=== PATIENT | male | born 1965 | race Two or more races ===

== ENCOUNTER 2019-11-01 16:11 | Emergency (ER) | payer OTHER ==
[~2019-11-01] VITALS: Ht 175.3 cm; Wt 103.9 kg
[2019-11-01 16:53] LABS: Urine WBC None Seen /hpf (0 - 3)
[2019-11-01 17:13] LABS: Basophils # (auto) 0 10 ^3/uL (0-0.2); Eosinophils # (auto) 0 10 ^3/uL (0-0.8); Lymphocytes # (auto) 2.2 10 ^3/uL (0.4-5.4)
[2019-11-01 17:14] LABS: Basophils % (auto) 0.3 % (0.0-2.0); Eosinophils % (auto) 0.1 % (0.0-7.0); Hematocrit 53.7 % (41.0-53.0); Lymphocytes % (auto) 13.5 % (10.0-50.0); Mean Corpuscular Hemoglobin 28.3 pg (28.0-32.0); Mean Corpuscular Hgb Conc. 33.5 g/dL (32.0-36.0); Mean Corpuscular Volume 84.4 fL (80.0-100.0); Monocytes # (auto) 1.4 10 ^3/uL (0-1.3); Monocytes % (auto) 8.3 % (0.0-12.0); Neutrophils # (auto) 12.7 10 ^3/uL (1.6-8.6); Neutrophils % (auto) 77.8 % (37.0-80.0); Nucleated Red Blood Cells % 0.6 %; Platelet Count (auto) 284 10^3/uL (140-450); Red Blood Cells 6.36 10^6/uL (4.5-5.90); Red Cell Distribution Width 13.3 % (11.8-14.3); White Blood Cell 16.4 10^3/uL (4.4-10.8)
[2019-11-01 17:20] LABS: Urine Bacteria NONE SEEN /hpf (None Seen); Urine Blood Negative /uL (Negative); Urine Specific Gravity 1.021 (1.001-1.035)
[2019-11-01 17:31] LABS: BUN/Creatinine Ratio 11.8; Calcium 8.8 mg/dL (8.5-10.1); Potassium 3.7 mmol/L (3.5-5.1)
[2019-11-01 21:00] VITALS: BP 158/97
[2019-11-01] MEDS ORDERED: MAGNESIUM CITRATE SOLUTION 300 ML BTL PO ONE (21:00)
== END 2019-11-01 21:40 | disposition home or self-care (01) ==
LOC: ER 16:11
DX: K80.20 Calculus of gallbladder without cholecystitis without obstruction (principal); K59.00 Constipation, unspecified
CPT/HCPCS: 36415; 74176; 76705; 80048; 81001; 82150; 83690; 85025; 93005

== ENCOUNTER 2019-11-02 13:16 | Inpatient (IN) | payer OTHER ==
[~2019-11-02] VITALS: Ht 175.3 cm; Wt 105.0 kg
[2019-11-02] MEDS ORDERED: SODIUM CHLORIDE 0.9% 1,000 ML IV ONE (13:51)
[2019-11-02] MEDS ORDERED: SODIUM CHLORIDE 0.9% 1,000 ML IVB ONE (13:51)
[2019-11-02] MEDS ORDERED: KETOROLAC TROMETH 15 mg/ml 1ML VL IV ONE (14:00)
[2019-11-02] MEDS ORDERED: METOCLOPRAMIDE HCL 5MG/ml INJ 2ml VIAL IV ONE (14:00)
[2019-11-02] MEDS ORDERED: KETOROLAC TROMETH 30 MG/ML 1ML VIAL ONE (14:08)
[2019-11-02 14:12] LABS: Basophils # (auto) 0 10 ^3/uL (0-0.2); Basophils % (auto) 0.2 % (0.0-2.0); Eosinophils # (auto) 0 10 ^3/uL (0-0.8); Eosinophils % (auto) 0.1 % (0.0-7.0); Lymphocytes # (auto) 1.6 10 ^3/uL (0.4-5.4); Neutrophils # (auto) 12.2 10 ^3/uL (1.6-8.6)
[2019-11-02 14:13] LABS: Hematocrit 51.7 % (41.0-53.0); Hemoglobin 17.2 g/dL (13.5-17.5); Lymphocytes % (auto) 10.8 % (10.0-50.0); Mean Corpuscular Hemoglobin 28.5 pg (28.0-32.0); Mean Corpuscular Hgb Conc. 33.3 g/dL (32.0-36.0); Mean Corpuscular Volume 85.8 fL (80.0-100.0); Monocytes # (auto) 1.1 10 ^3/uL (0-1.3); Monocytes % (auto) 7.2 % (0.0-12.0); Neutrophils % (auto) 81.7 % (37.0-80.0); Nucleated Red Blood Cells % 0.1 %; Platelet Count (auto) 237 10^3/uL (140-450); Red Blood Cells 6.03 10^6/uL (4.5-5.90); Red Cell Distribution Width 13.6 % (11.8-14.3)
[2019-11-02 14:29] LABS: Albumin 3.7 g/dL (3.4-5.0); Calcium 8.7 mg/dL (8.5-10.1); Potassium 3.6 mmol/L (3.5-5.1)
[2019-11-02 14:40] LABS: BUN/Creatinine Ratio 14.8; Bilirubin, Total 1.6 mg/dL (0.2-1.0); Total Protein 8.5 g/dL (6.4-8.2)
[2019-11-02] MEDS: SODIUM CHLORIDE 0.9% 1,000 ML IV SCH (15:30)
[2019-11-02] MEDS ORDERED: ALUM & MAG HYDROX-SIMETH LIQ(MAALOX) 30 ML PO ONE (15:30)
[2019-11-02] MEDS ORDERED: MORPHINE SULF INJ 2 MG/ML SYRINGE 1ML IV PRN (15:30)
[2019-11-02] MEDS ORDERED: metroNIDAZOLE 500MG/100ML 100 ML IV ONE (15:30)
[2019-11-02] MEDS ORDERED: LORazepam 0.5 MG TAB PO PRN (15:30)
[2019-11-02] MEDS ORDERED: DEXTROSE (50%) 50ML SYRG IV PRN (15:30)
[2019-11-02] MEDS ORDERED: cefTRIAXone 1GM/50ML D5W 50 ML IV ONE (15:30)
[2019-11-02] MEDS ORDERED: NITROGLYCERIN 0.4 MG SL TAB SL PRN (15:30)
[2019-11-02] MEDS ORDERED: ONDANSETRON HCL 4 MG/2 ML VIAL IV PRN (15:30)
[2019-11-02] MEDS: HYDROcodone-ACET 5/325MG TAB PO PRN ×2 (16:36→20:41)
[2019-11-02] MEDS: ACCU-CHEK COMFORT CURVE STRIP VI SCH ×2 (16:54→22:46)
[2019-11-02] MEDS: InsuLIN REG 1unit/0.01ml Soln (100units/ml) SC SCH ×2 (16:55→22:00)
[2019-11-02 17:00] VITALS: BP 151/78
--- NOTE | 2019-11-02 17:00 | NUR ---
MS admit from [facility] admitted to tele/MS after SBAR received. Patient oriented to Naina Brooks, RN primary RN, unit, room, bed, and unit policies regarding patient care and visiting hours. Patient weighed by bedscale and encouraged to call if they need something. All questions and concerns addressed, patient verbalized understanding.
[2019-11-02 17:27] VITALS: BP 151/78
--- NOTE | 2019-11-02 18:10 | NUR ---
MRSA swab sent to lab
--- NOTE | 2019-11-02 19:21 | NUR ---
Care endorsed to NOC RN.
--- NOTE | 2019-11-02 19:40 | NUR ---
Opening Shift Note Received report and assumed care of patient. Patient is awake and alert. No signs or symptoms of distress noted. Instructed patient on plan of care and to call for assistance as needed. Will continue to monitor.
--- NOTE | 2019-11-02 20:41 | NUR ---
Pain Medication Administration Patient complaining of abdominal pain 5/10. Administered pain medication per MD order. Will reassess pain level and will continue to monitor.
--- NOTE | 2019-11-02 21:44 | NUR ---
Pain Level Reassessment and Fever Patient stated pain level 4/10 for reassessment. Educated patient on ordered pain medication. Repositioned patient for comfort. Patient's temperature noted to be 102.5 F. Started patient on cooling measures. Paged Hospitalist for antipyretic medication. Will continue to monitor.
[2019-11-02] MEDS ORDERED: TRIAMCINOLONE ACET 0.1% TOPICAL CREAM 15GM TOP ONE (21:45)
[2019-11-02 22:00] VITALS: BP 147/71
[2019-11-02] MEDS: metroNIDAZOLE 500MG/100ML 100 ML IV SCH (22:40)
--- NOTE | 2019-11-02 22:58 | NUR ---
Temperature recheck and new order Patient temperature recheck 101.9 F. Received call back from hospitalist. New order for Tylenol 650mg q6hr PRN for mild pain or fever. Order read back and verified. Will carry out and continue to monitor.
[2019-11-02] MEDS: ACETAMINOPHEN 325 MG TAB PO PRN (23:19)
--- NOTE | 2019-11-03 00:19 | NUR ---
Temperature Recheck Patient's temperature 101.3 F. Reinforced cooling measures. Will continue to monitor.
--- NOTE | 2019-11-03 01:20 | NUR ---
Temperature Recheck Patient's temperature 100.0 F. Cooling measures still in place. Will continue to monitor.
[2019-11-03] MEDS: HYDROcodone-ACET 5/325MG TAB PO PRN (02:30)
--- NOTE | 2019-11-03 02:30 | NUR ---
Temperature recheck and pain medication administration Patient temperature 99.3 F. Patient complaining of abdominal pain 11/19. Administered pain medication per MD order. Will reassess pain level and will continue to monitor.
--- NOTE | 2019-11-03 03:30 | NUR ---
Pain Level Reassessment Patient asleep for pain level reassessment. No signs or symptoms of distress noted. Will continue to monitor.
[2019-11-03 05:00] VITALS: BP 125/83
[2019-11-03] MEDS: ACETAMINOPHEN 325 MG TAB PO PRN ×2 (05:30→15:24)
[2019-11-03 05:49] LABS: Basophils # (auto) 0 10 ^3/uL (0-0.2); Basophils % (auto) 0.1 % (0.0-2.0); Eosinophils # (auto) 0 10 ^3/uL (0-0.8); Hematocrit 47.9 % (41.0-53.0); Hemoglobin 16.3 g/dL (13.5-17.5); Lymphocytes # (auto) 0.9 10 ^3/uL (0.4-5.4); Lymphocytes % (auto) 6.4 % (10.0-50.0); Mean Corpuscular Hgb Conc. 33.9 g/dL (32.0-36.0); Mean Corpuscular Volume 85.5 fL (80.0-100.0); Monocytes % (auto) 6.9 % (0.0-12.0); Neutrophils # (auto) 12.1 10 ^3/uL (1.6-8.6); Neutrophils % (auto) 86.6 % (37.0-80.0); Nucleated Red Blood Cells % 0.1 %; Platelet Count (auto) 219 10^3/uL (140-450); Red Blood Cells 5.61 10^6/uL (4.5-5.90); Red Cell Distribution Width 13.4 % (11.8-14.3); White Blood Cell 13.9 10^3/uL (4.4-10.8)
[2019-11-03] MEDS: metroNIDAZOLE 500MG/100ML 100 ML IV SCH ×3 (05:58→22:14)
[2019-11-03 06:02] LABS: INR 1.12 (0.9-1.15)
[2019-11-03 06:13] LABS: Potassium 3.9 mmol/L (3.5-5.1)
[2019-11-03 06:23] LABS: Albumin 3.2 g/dL (3.4-5.0); BUN/Creatinine Ratio 13.6; Bilirubin, Total 1.3 mg/dL (0.2-1.0); Magnesium 2.5 mg/dL (1.6-2.6); Phosphorus 2.6 mg/dL (2.5-4.90); Total Protein 7.6 g/dL (6.4-8.2)
[2019-11-03] MEDS: cefTRIAXone 1GM/50ML D5W 50 ML IV SCH ×2 (07:00→09:17)
[2019-11-03] MEDS: InsuLIN REG 1unit/0.01ml Soln (100units/ml) SC SCH ×3 (07:00→17:00)
[2019-11-03] MEDS: ACCU-CHEK COMFORT CURVE STRIP VI SCH ×4 (07:17→17:00)
[2019-11-03] MEDS: SODIUM CHLORIDE 0.9% 1,000 ML IV SCH ×2 (07:17→16:52)
[2019-11-03 08:32] VITALS: BP 138/75
[2019-11-03] MEDS ORDERED: cefTRIAXone 1GM/50ML D5W 50 ML IV SCH (09:00)
--- NOTE | 2019-11-03 09:00 | NUR ---
TEMP 100.3
--- NOTE | 2019-11-03 09:15 | NUR ---
COOLING MEASURES INITIATED
[2019-11-03] MEDS: TRIAMCINOLONE ACET 0.1% TOPICAL CREAM 15GM TOP SCH ×2 (09:18→22:14)
[2019-11-03] MEDS: ENOXAPARIN SOD 40 MG/0.4 ML SYRINGE SC SCH ×2 (09:18→10:00)
[2019-11-03] MEDS: DOCUSATE SOD 100 MG CAP PO SCH ×2 (09:18→10:00)
--- NOTE | 2019-11-03 09:55 | NUR ---
TEMP REASSESSMENT NEW TEMPERATURE 99.2
--- NOTE | 2019-11-03 11:28 | NUR ---
PT OFF UNIT FOR PROCEDURE
[2019-11-03] MEDS ORDERED: ceFAZolin 1GM/50ML 50 ML IV ONE (11:35)
[2019-11-03] MEDS ORDERED: MIDAZOLAM HCL 1MG/1ML-2 ML VIAL ONE (11:57)
[2019-11-03] MEDS ORDERED: SUCCINYLCHOLINE 20mg/ml 100mg/5ml SYRINGE IV ONE (11:57)
[2019-11-03] MEDS ORDERED: LIDOCAINE 1% (LOCAL ANESTH.) PF 5ml SDV ONE (11:58)
[2019-11-03] MEDS ORDERED: ETOMIDATE (2MG/ML) 20ML VIAL IV ONE (11:58)
[2019-11-03] MEDS ORDERED: METOCLOPRAMIDE HCL 5MG/ml INJ 2ml VIAL ONE (11:59)
[2019-11-03] MEDS ORDERED: fentaNYL CITRATE 100 MCG/2 ML VL ONE (12:08)
[2019-11-03] MEDS ORDERED: ROCURONIUM 10MG/ML 10ML VIAL IV ONE (12:10)
[2019-11-03] MEDS ORDERED: hydrALAZINE HCL 20 MG/ML VL IV PRN ×2 (12:15→18:15)
[2019-11-03] MEDS ORDERED: HYDROmorphone HCL 2 MG/ML VL IV PRN ×2 (12:15)
[2019-11-03] MEDS ORDERED: ONDANSETRON HCL 4 MG/2 ML VIAL IV PRN (12:15)
[2019-11-03] MEDS ORDERED: NALOXONE HCL 0.4 MG/ML VIAL IV PRN (12:15)
[2019-11-03] MEDS ORDERED: ESMOLOL HCL 10 ML IV ONE (12:32)
[2019-11-03] MEDS ORDERED: MEPERIDINE HCL (25 MG/ML) 1ML VIAL ONE (12:43)
[2019-11-03] MEDS ORDERED: GLYCOPYRROLATE 0.2 MG/ML 1ML VIAL ONE (12:57)
[2019-11-03] MEDS ORDERED: NEOSTIGMINE 1 MG/ML INJ (10mg/10ML VIAL) ONE (12:57)
--- NOTE | 2019-11-03 14:26 | NUR ---
PT ARRIVAL BACK TO UNIT S/P OPEN CHOLECYSTECTOMY PT HAS NO COMPLAINTS OF PAIN AT THIS TIME. ABDOMEN IS ROUND AND SOFT. PT ON 3L NC. NO S/S OF DISTRESS NOTED AT THIS TIME. WILL CONTINUE TO MONITOR
[2019-11-03 16:12] LABS: Urine Bacteria FEW /hpf (None Seen); Urine Blood TRACE /uL (Negative); Urine Mucus FEW (None Seen); Urine WBC 2 /hpf (0 - 3)
[2019-11-03 16:44] VITALS: BP 160/76
--- NOTE | 2019-11-03 17:24 | NUR ---
PT REFUSING ACCUCHECK AT THIS TIME PT STATES "I HAVE BEEN NORMAL EVERY TIME YOU GUYS CHECK ME AND I WAS NEVER DIABETIC BEFORE THIS SO I DO NOT WANT TO TAKE IT"
[2019-11-03 18:08] VITALS: BP 145/80
--- NOTE | 2019-11-03 19:29 | NUR ---
Opening Shift Note Received report and assumed care of patient. Patient is currently asleep but awakens to voice. Patient is alert and oriented. No signs or symptoms of distress noted. Instructed patient on plan of care and to call for assistance as needed. Will continue to monitor.
[2019-11-03 21:47] VITALS: BP 104/49
[2019-11-03 23:50] VITALS: BP 127/69
[2019-11-04] MEDS: HYDROcodone-ACET 5/325MG TAB PO PRN ×4 (01:27→21:37)
--- NOTE | 2019-11-04 01:27 | NUR ---
Pain Medication Administration Patient complaining of abdominal incision pain 5/10. Administered pain medication per MD order. Will reassess pain level and will continue to monitor.
--- NOTE | 2019-11-04 02:27 | NUR ---
Pain Level Reassessment Patient asleep for pain level reassessment. No signs or symptoms of distress noted. Will continue to monitor.
[2019-11-04 05:00] VITALS: BP 103/71
[2019-11-04] MEDS: SODIUM CHLORIDE 0.9% 1,000 ML IV SCH ×2 (05:15→12:44)
[2019-11-04] MEDS: metroNIDAZOLE 500MG/100ML 100 ML IV SCH ×3 (05:39→21:36)
--- NOTE | 2019-11-04 07:00 | NUR ---
MELISSA Drain Amount Drained 15ml of sanguineous fluid.
--- NOTE | 2019-11-04 07:20 | NUR ---
Opening shift note Assumed care of patient. A&Ox4, respirations even and non-labored with no s/s of distress. Discussed POC with patient who verbalized understanding. Patient stated he had 6/10 generalized abdominal pain. MELISSA patent, draining 10 mL of serosanguineous fluid, with dressings CDI. Abdominal binder in place with patient tolerating well without complaint. IVs patent and intact with NS at 75. Urinal emptied with 100 ml of tea colored urine. Bed lowered/locked with 2 side rails up. Call light within reach. Will continue to monitor.
--- NOTE | 2019-11-04 07:38 | NUR ---
Pain Patient c/o 6/10 abdominal pain. Administered [place] per EMAR. Will continue to monitor.
[2019-11-04 07:52] LABS: Basophils # (auto) 0 10 ^3/uL (0-0.2); Basophils % (auto) 0.2 % (0.0-2.0); Eosinophils # (auto) 0 10 ^3/uL (0-0.8); Hematocrit 41.7 % (41.0-53.0); Hemoglobin 13.9 g/dL (13.5-17.5); Lymphocytes # (auto) 1.3 10 ^3/uL (0.4-5.4); Lymphocytes % (auto) 12.5 % (10.0-50.0); Mean Corpuscular Hemoglobin 28.9 pg (28.0-32.0); Mean Corpuscular Hgb Conc. 33.3 g/dL (32.0-36.0); Mean Corpuscular Volume 86.6 fL (80.0-100.0); Monocytes # (auto) 1.5 10 ^3/uL (0-1.3); Monocytes % (auto) 14.1 % (0.0-12.0); Neutrophils # (auto) 7.8 10 ^3/uL (1.6-8.6); Neutrophils % (auto) 73.2 % (37.0-80.0); Nucleated Red Blood Cells % 0.1 %; Platelet Count (auto) 186 10^3/uL (140-450); Red Blood Cells 4.82 10^6/uL (4.5-5.90); Red Cell Distribution Width 13.6 % (11.8-14.3); White Blood Cell 10.6 10^3/uL (4.4-10.8)
[2019-11-04 08:03] LABS: Albumin 2.6 g/dL (3.4-5.0); Calcium 7.4 mg/dL (8.5-10.1); Potassium 3.9 mmol/L (3.5-5.1)
[2019-11-04 08:06] LABS: Bilirubin, Total 1.1 mg/dL (0.2-1.0); Total Protein 6.5 g/dL (6.4-8.2)
[2019-11-04] MEDS: ENOXAPARIN SOD 40 MG/0.4 ML SYRINGE SC SCH (08:24)
[2019-11-04] MEDS: cefTRIAXone 1GM/50ML D5W 50 ML IV SCH (08:25)
[2019-11-04] MEDS: DOCUSATE SOD 100 MG CAP PO SCH (08:25)
--- NOTE | 2019-11-04 08:44 | NUR ---
Pain reassessed Patient stated that his abdominal pain was slightly less now and rated 5/10 pain which was tolerable. Will continue to monitor.
[2019-11-04] MEDS: TRIAMCINOLONE ACET 0.1% TOPICAL CREAM 15GM TOP SCH ×2 (08:48→21:37)
[2019-11-04 08:54] VITALS: BP 149/64
--- NOTE | 2019-11-04 09:00 | NUR ---
Patient skin cream applied Applied psoriasis cream to patient's bilateral arms, hands, bilateral knees and thighs. Will continue to monitor.
--- NOTE | 2019-11-04 12:18 | NUR ---
Patient assisted to restroom
--- NOTE | 2019-11-04 12:46 | NUR ---
Pain Pt reports pain to abdominal incision site 12/20, pt requested pain medication, will medicate pt as order.
[2019-11-04 13:30] VITALS: BP 133/80
--- NOTE | 2019-11-04 13:41 | NUR ---
Patient reports pain level 0/10 at this time, will continue to monitor pt.
[2019-11-04 16:39] VITALS: BP 135/72
--- NOTE | 2019-11-04 19:30 | NUR ---
Opening Shift Note Assumed care of patient, awake and alert. No S/S of distress/SOB or pain. Instructed on POC and to call for assist PRN, will continue to monitor for changes Q1hr and PRN. Safety precautions maintained bed is in lowest position and bed rails 2x. Call light and bedside table are within reach.
--- NOTE | 2019-11-04 21:25 | NUR ---
PAIN Pain level 6. Will medicate per MD orders.
[2019-11-04 21:50] VITALS: BP 144/87
--- NOTE | 2019-11-04 22:40 | NUR ---
Pain reassessment Pain level 3. Patient resting comfortably in bed. Will continue to monitor Q1 and PRN.
[2019-11-05] MEDS: SODIUM CHLORIDE 0.9% 1,000 ML IV SCH (03:57)
[2019-11-05 05:00] VITALS: BP 118/67
[2019-11-05] MEDS: metroNIDAZOLE 500MG/100ML 100 ML IV SCH ×3 (05:39→21:56)
[2019-11-05] MEDS: HYDROcodone-ACET 5/325MG TAB PO PRN ×2 (05:39→17:19)
[2019-11-05 07:20] LABS: Basophils # (auto) 0 10 ^3/uL (0-0.2); Basophils % (auto) 0.1 % (0.0-2.0); Eosinophils # (auto) 0 10 ^3/uL (0-0.8); Eosinophils % (auto) 0.5 % (0.0-7.0); Hematocrit 35.5 % (41.0-53.0); Hemoglobin 11.9 g/dL (13.5-17.5); Lymphocytes # (auto) 1.3 10 ^3/uL (0.4-5.4); Lymphocytes % (auto) 13.8 % (10.0-50.0); Mean Corpuscular Hemoglobin 28.9 pg (28.0-32.0); Mean Corpuscular Hgb Conc. 33.6 g/dL (32.0-36.0); Mean Corpuscular Volume 85.9 fL (80.0-100.0); Neutrophils # (auto) 6.9 10 ^3/uL (1.6-8.6); Neutrophils % (auto) 74.6 % (37.0-80.0); Nucleated Red Blood Cells % 0.1 %; Platelet Count (auto) 184 10^3/uL (140-450); Red Blood Cells 4.13 10^6/uL (4.5-5.90); Red Cell Distribution Width 13.6 % (11.8-14.3); White Blood Cell 9.3 10^3/uL (4.4-10.8)
[2019-11-05 07:34] LABS: Albumin 2.3 g/dL (3.4-5.0); BUN/Creatinine Ratio 19.6; Calcium 7.3 mg/dL (8.5-10.1); Potassium 4.1 mmol/L (3.5-5.1)
[2019-11-05 07:56] LABS: Bilirubin, Total 0.7 mg/dL (0.2-1.0)
--- NOTE | 2019-11-05 08:00 | NUR ---
Received pt resting in bed, call light within reach, pt denies any pain or discomfort at this time, abdominal binder on, pt reports passing gas already and tolerating his clear liquid diet. Will continue to monitor pt.
--- NOTE | 2019-11-05 09:00 | NUR ---
Pt educated to increase ambulation and reeducated on the use of the incentive spirometer. Pt stated that he has been using the incentive spirometer and that he has been walking to the restroom.
[2019-11-05 09:34] VITALS: BP 111/64
--- NOTE | 2019-11-05 10:10 | NUR ---
Dressing change Removed old dressing from rt abdomen incision site and from serge drain, cleaned area with normal saline, jessica on incision intact, covered incision site and serge drain incision site with sterile gauzed and secured with tape, applied abdominal binder on,
[2019-11-05] MEDS: ENOXAPARIN SOD 40 MG/0.4 ML SYRINGE SC SCH (10:24)
[2019-11-05] MEDS: DOCUSATE SOD 100 MG CAP PO SCH (10:24)
[2019-11-05] MEDS: cefTRIAXone 1GM/50ML D5W 50 ML IV SCH (10:24)
[2019-11-05] MEDS: TRIAMCINOLONE ACET 0.1% TOPICAL CREAM 15GM TOP SCH ×2 (10:25→21:56)
[2019-11-05 13:00] VITALS: BP 130/76
--- NOTE | 2019-11-05 15:30 | NUR ---
Dr. Davis at bed side to see pt, doctor discussed the plan of care with pt, doctor encourage pt to get out of bed and ambulate or sit on chair, pt told doctor that he has been walking to the restroom, doctor also encourage and educated pt on the use of incentive spirometer, obtained returned demonstration, pt verbalized understanding.
[2019-11-05 17:03] VITALS: BP 134/75
--- NOTE | 2019-11-05 17:19 | NUR ---
Pain Pt reports pain to abdominal incision site and headache /, pt requested pain medication, will medicate pt as order.
--- NOTE | 2019-11-05 19:07 | NUR ---
OPENING SHIFT NOTE: ASSUMED CARE OF PATIENT. PATIENT IS AWAKE, ALERT AND ORIENTED X4. NO S/S OF SOB OR DISTRESS AND PATIENT DENIES PAIN. BED IS LOW, LOCKED, TWO SIDE RAILS RAISED, AND CALL JOINER WITHIN REACH. INSTRUCTED PATIENT ON POC, EDUCATED ON USE OF INCENTIVE SPIROMETER, AND ENCOURAGED TO USE CALL LIGHT FOR ASSISTANCE, PATIENT VERBALIZED UNDERSTANDING. WILL CONTINUE TO MONITOR FOR CHANGES Q1 HR AND PRN.
[2019-11-05 20:00] VITALS: BP 128/68
[2019-11-05 22:21] VITALS: BP 128/68
--- NOTE | 2019-11-05 22:33 | NUR ---
NEW IV: 22 GAUGE IV TO LEFT FOREARM LEAKING. DISCONTINUED IV, CATHETER TIP INTACT AND PRESSURE DRESSING APPLIED. NEW 22 GAUGE IV TO LEFT FOREARM INSERTED. PATIENT TOLERATED WELL.
[2019-11-06 05:05] VITALS: BP 130/73
[2019-11-06] MEDS: metroNIDAZOLE 500MG/100ML 100 ML IV SCH ×3 (06:13→21:44)
[2019-11-06 07:05] LABS: Basophils # (auto) 0 10 ^3/uL (0-0.2); Basophils % (auto) 0.3 % (0.0-2.0); Eosinophils # (auto) 0.1 10 ^3/uL (0-0.8); Eosinophils % (auto) 1.1 % (0.0-7.0); Hematocrit 35.6 % (41.0-53.0); Hemoglobin 11.8 g/dL (13.5-17.5); Lymphocytes # (auto) 1.4 10 ^3/uL (0.4-5.4); Lymphocytes % (auto) 17.4 % (10.0-50.0); Mean Corpuscular Hemoglobin 28.6 pg (28.0-32.0); Mean Corpuscular Hgb Conc. 33.2 g/dL (32.0-36.0); Monocytes # (auto) 0.7 10 ^3/uL (0-1.3); Monocytes % (auto) 9.1 % (0.0-12.0); Neutrophils # (auto) 5.8 10 ^3/uL (1.6-8.6); Neutrophils % (auto) 72.1 % (37.0-80.0); Nucleated Red Blood Cells % 0.1 %; Platelet Count (auto) 220 10^3/uL (140-450); Red Blood Cells 4.13 10^6/uL (4.5-5.90); Red Cell Distribution Width 13.6 % (11.8-14.3)
[2019-11-06 07:18] LABS: Albumin 2.4 g/dL (3.4-5.0); BUN/Creatinine Ratio 15.5; Calcium 7.8 mg/dL (8.5-10.1); Potassium 3.7 mmol/L (3.5-5.1)
[2019-11-06 07:20] LABS: Bilirubin, Total 0.6 mg/dL (0.2-1.0); Total Protein 6.1 g/dL (6.4-8.2)
[2019-11-06 08:00] VITALS: BP 119/77
--- NOTE | 2019-11-06 08:00 | NUR ---
Received pt resting in bed, call light within reach, pt reports to have had 3 loose bm this morning, pt reports to tolerated his clear fluid diet, pt denies pain at this time, will continue to monitor pt.
[2019-11-06] MEDS: cefTRIAXone 1GM/50ML D5W 50 ML IV SCH (08:36)
[2019-11-06] MEDS: TRIAMCINOLONE ACET 0.1% TOPICAL CREAM 15GM TOP SCH ×2 (08:37→21:42)
[2019-11-06] MEDS: ENOXAPARIN SOD 40 MG/0.4 ML SYRINGE SC SCH (08:37)
[2019-11-06] MEDS: DOCUSATE SOD 100 MG CAP PO SCH (08:37)
[2019-11-06 09:06] VITALS: BP 119/77
--- NOTE | 2019-11-06 12:30 | NUR ---
Dr. Davis at bed side to see pt, doctor discussed the plan of care with pt, doctor got pt out of bed and walked with pt, pt tolerated well,
[2019-11-06 12:46] VITALS: BP 135/74
--- NOTE | 2019-11-06 15:21 | NUR ---
PT REPORTED THAT HE WALKED FINE WITHOUT DIZZINESS AND WITHOUT DEVICE AND DOES NOT NEED P.T. INTERVENTION AT THIS TIME.
[2019-11-06] MEDS: ACETAMINOPHEN 325 MG TAB PO PRN (16:43)
--- NOTE | 2019-11-06 16:43 | NUR ---
Pain Assessment Pt report mild headache 3/10, pt requested tylenol, will medicate pt as order.
--- NOTE | 2019-11-06 17:22 | NUR ---
Received a call from Dr. Davis regarding pt, doctor informed that pt reported 3 liquid BMs today, orders received to give pt information regarding diverticulosis, foods to avoid, and fatty liver, orders received to advance diet to full liquid.
[2019-11-06 17:30] VITALS: BP 142/84
--- NOTE | 2019-11-06 19:30 | NUR ---
Opening Shift Note Assumed care of patient, awake and alert oriented x4. No S/S of distress/SOB or pain noted. Instructed on POC and to call for assist PRN. Bed is in lowest locked position with bed rails up x2 and call light is within reach of the patient. Incentive spirometer at the bedside and educated the patient on how to use IS. Patient verbalized understanding and demonstrated.
--- NOTE | 2019-11-06 21:46 | NUR ---
Patient refused antibiotic: Patient refused iv antibiotic Flagyl at this time stating "I dont want to take that antibiotic. It makes me taste metal in my mouth and I hate that. I dont want to take it." Educated patient that it is one of the side affects of the medication and the importance of taking medication to prevent infection. Patient still refused at this time. Already aware that patient does not want to take Flagyl. Addendum: 11/06/19 at 2150 by Violet Santiago RN RN Edit: Already aware that patient does not want to take Flagyl according to day shift nurse.
[2019-11-07 05:28] VITALS: BP 134/73
[2019-11-07] MEDS: metroNIDAZOLE 500MG/100ML 100 ML IV SCH (06:00)
--- NOTE | 2019-11-07 06:38 | NUR ---
Patient refused antibiotic: Patient refused antibiotic Flagyl at this time. Educated patient about the benefits and risks of not having antibiotic including infection. Patient still refused stating " I barely started getting rid of the metal taste in my mouth. I dont want it."
--- NOTE | 2019-11-07 06:49 | NUR ---
20ml of sanguineous fluid drained from MELISSA drain.
[2019-11-07 07:02] LABS: Basophils # (auto) 0 10 ^3/uL (0-0.2); Basophils % (auto) 0.3 % (0.0-2.0); Eosinophils # (auto) 0.1 10 ^3/uL (0-0.8); Hematocrit 37.9 % (41.0-53.0); Hemoglobin 12.7 g/dL (13.5-17.5); Lymphocytes # (auto) 1.6 10 ^3/uL (0.4-5.4); Lymphocytes % (auto) 19.4 % (10.0-50.0); Mean Corpuscular Hemoglobin 28.8 pg (28.0-32.0); Mean Corpuscular Hgb Conc. 33.6 g/dL (32.0-36.0); Mean Corpuscular Volume 85.8 fL (80.0-100.0); Monocytes # (auto) 0.7 10 ^3/uL (0-1.3); Monocytes % (auto) 9.1 % (0.0-12.0); Neutrophils # (auto) 5.7 10 ^3/uL (1.6-8.6); Neutrophils % (auto) 70.2 % (37.0-80.0); Platelet Count (auto) 290 10^3/uL (140-450); Red Blood Cells 4.42 10^6/uL (4.5-5.90); Red Cell Distribution Width 13.1 % (11.8-14.3); White Blood Cell 8.1 10^3/uL (4.4-10.8)
[2019-11-07 07:12] LABS: Calcium 8.3 mg/dL (8.5-10.1); Potassium 3.9 mmol/L (3.5-5.1)
[2019-11-07 07:18] LABS: Albumin 2.7 g/dL (3.4-5.0); BUN/Creatinine Ratio 12.9; Bilirubin, Total 0.9 mg/dL (0.2-1.0); Total Protein 7.1 g/dL (6.4-8.2)
--- NOTE | 2019-11-07 07:20 | NUR ---
Opening shift note Assumed care of patient. Patient sitting up A&Ox4, respirations even and non-labored with no s/s of distress. Discussed POC with patient who verbalized understanding. Patient stated that he no longer wanted Metronidazole by IV as he has a bad metal taste in his mouth from the drug. IV flushed, patent and intact. MELISSA drain holding 10 mL of serosanguineous drainage. Dressings CDI with abdominal binder in place. Bed lowered/locked with 2 side rails up. Call light within reach. Will continue to monitor.
[2019-11-07 08:00] VITALS: BP 144/81
[2019-11-07 09:00] VITALS: BP 144/81
[2019-11-07] MEDS: cefTRIAXone 1GM/50ML D5W 50 ML IV SCH (09:55)
[2019-11-07] MEDS: DOCUSATE SOD 100 MG CAP PO SCH (09:57)
[2019-11-07] MEDS: ENOXAPARIN SOD 40 MG/0.4 ML SYRINGE SC SCH (09:57)
[2019-11-07] MEDS: TRIAMCINOLONE ACET 0.1% TOPICAL CREAM 15GM TOP SCH ×2 (10:00→21:57)
--- NOTE | 2019-11-07 12:10 | NUR ---
Dr. Domínguez at bed side to see pt, doctor discussed plan of care with pt, doctor informed that pt has been refusing IV Flagyl.
[2019-11-07 13:00] VITALS: BP 154/88
[2019-11-07] MEDS: metroNIDAZOLE 500 MG TAB PO SCH ×2 (14:07→21:57)
--- NOTE | 2019-11-07 14:34 | NUR ---
Dressing change Removed abdominal dressings. 17 jessica intact, well-approximated with no drainage, redness, or swelling present. MELISSA incision intact with minimal dry, brown drainage. No redness or swelling noted. Cleansed incisions with NS, patted dry with guaze, covered with gauze 4x4s and dressing retention tape. Applied abdominal binder. Patient tolerated well without complaint.
--- NOTE | 2019-11-07 15:30 | NUR ---
PT REPORTS THAT HE WALKED IN THE BERG ALREADY BY HIMSELF WITHOUT SYMPTOMS
[2019-11-07 17:00] VITALS: BP 155/84
--- NOTE | 2019-11-07 19:30 | NUR ---
Opening Shift Note Assumed care of patient, awake and alert oriented x4. No S/S of distress/SOB or pain noted. Instructed on POC and to call for assist PRN. Bed is in lowest locked position with bed rails up x2 and call light is within reach of the patient. Patient ambulating and tolerating well.
[2019-11-07 21:26] VITALS: BP 136/74
[2019-11-08 05:02] VITALS: BP 139/84
[2019-11-08] MEDS: metroNIDAZOLE 500 MG TAB PO SCH ×2 (05:52→13:54)
[2019-11-08 06:15] LABS: Potassium 4.3 mmol/L (3.5-5.1)
[2019-11-08 06:29] LABS: Albumin 2.7 g/dL (3.4-5.0); Bilirubin, Direct 0.2 mg/dL (0-0.2); Bilirubin, Total 0.6 mg/dL (0.2-1.0); Magnesium 2.5 mg/dL (1.6-2.6); Total Protein 6.9 g/dL (6.4-8.2)
--- NOTE | 2019-11-08 07:53 | NUR ---
10ml of sanguineous fluid drained from MELISSA drain.
[2019-11-08 08:50] VITALS: BP 131/87
[2019-11-08] MEDS: cefTRIAXone 1GM/50ML D5W 50 ML IV SCH (09:14)
[2019-11-08] MEDS: TRIAMCINOLONE ACET 0.1% TOPICAL CREAM 15GM TOP SCH (09:14)
[2019-11-08] MEDS: DOCUSATE SOD 100 MG CAP PO SCH (09:15)
[2019-11-08] MEDS: ENOXAPARIN SOD 40 MG/0.4 ML SYRINGE SC SCH (09:15)
--- NOTE | 2019-11-08 11:25 | NUR ---
SPOKE WITH DOCTOR MISSY, REGARDING CLEARANCE FOR DISCHARGE. PER MD PATIENT IS OKAY TO BE D/C HOME HAVE PATIENT FOLLOW UP WITH HIM WITH IN ONE WEEK. DOCTOR KELLEY INFORMED OF CLEARANCE.
[2019-11-08 12:50] VITALS: BP 136/77
[2019-11-08 12:52] VITALS: BP 148/82
[2019-11-08] MEDS ORDERED: LEVO500T21 PO (13:47)
[2019-11-08] MEDS ORDERED: METR500T PO (13:47)
[2019-11-08] MEDS ORDERED: DOCU100C8 PO (14:12)
--- NOTE | 2019-11-08 16:59 | NUR ---
Discharge instructions given as ordered. Encourage to follow up with PMD as instructed. All questions and concerns addressed. Patient verbalized understanding. Medication reconciliation form completed and copy given to patient. No home medications held in Pharmacy and none returned to patient, and no needed vaccines given. IV removed with catheter intact, pressure dressing applied. Patient taken to vehicle via wheelchair with all personal belongings, accompanied by staff. Family waiting at front entrance for transportation. No distress noted at time of departure.
== END 2019-11-08 16:59 | disposition home or self-care (01) | DRG 854 ==
LOC: ER 13:16 → WEST WING 13:17
PROVIDERS: ADMIT Hospitalist; ATTEND Internal Medicine
PROC: 0FT40ZZ Resection of Gallbladder, Open Approach (ICD-10-PCS; principal; 2019-11-03 11:55)
DX: A41.9 Sepsis, unspecified organism (principal); E87.1 Hypo-osmolality and hyponatremia; K80.00 Calculus of gallbladder with acute cholecystitis without obstruction; J98.11 Atelectasis; L40.9 Psoriasis, unspecified; I10 Essential (primary) hypertension; R73.03 Prediabetes; K76.0 Fatty (change of) liver, not elsewhere classified; E66.01 Morbid (severe) obesity due to excess calories; K57.30 Diverticulosis of large intestine without perforation or abscess without bleeding; M19.90 Unspecified osteoarthritis, unspecified site; Z79.899 Other long term (current) drug therapy; V89.2XXA Person injured in unspecified motor-vehicle accident, traffic, initial encounter; Z68.34 Body mass index [BMI] 34.0-34.9, adult; Y93.89 Activity, other specified; Y92.89 Other specified places as the place of occurrence of the external cause; Y99.8 Other external cause status
CPT/HCPCS: 36415; 71045; 80053; 80061; 80076; 81001; 82962; 83036; 83605; 83690; 83735; 84100; 84132; 85025; 85610; 85730; 86850; 86900; 86901; 86920; 87040; 87081; 93005; 96361; 96365; 96368; 96375; 97110; 97116; 97530; G0378; J0690; J0696; J1885; J2250; J3490

== ENCOUNTER → 2019-11-14 | Outpatient (CLI) | payer OTHER ==
[~2019-11-14] MED LIST: DOCU100C8 PO; LEVO500T21 PO; METR500T PO
[2019-11-14 13:13] LABS: Albumin 3.3 g/dL (3.4-5.0); Bilirubin, Direct 0.2 mg/dL (0-0.2)
[2019-11-14 13:16] LABS: Bilirubin, Total 0.7 mg/dL (0.2-1.0)
== END | disposition home or self-care (01) ==
LOC: LAB 12:21
PROVIDERS: ATTEND Internal Medicine
DX: R94.5 Abnormal results of liver function studies (principal)
CPT/HCPCS: 36415; 80076

== ENCOUNTER → 2019-12-13 | Outpatient (CLI) | payer OTHER | END | disposition home or self-care (01) | LOC: LAB 07:47 | PROVIDERS: ATTEND Internal Medicine | DX: Z12.11 Encounter for screening for malignant neoplasm of colon (principal); K76.0 Fatty (change of) liver, not elsewhere classified; L40.50 Arthropathic psoriasis, unspecified | CPT/HCPCS: 36415; 84153; 85652; 86141; 86225; 86235 ==

== ENCOUNTER → 2019-12-19 | Outpatient (CLI) | payer OTHER | END | disposition home or self-care (01) | LOC: LAB 12:52 | PROVIDERS: ATTEND Internal Medicine | DX: Z12.11 Encounter for screening for malignant neoplasm of colon (principal); K76.0 Fatty (change of) liver, not elsewhere classified; L40.50 Arthropathic psoriasis, unspecified; R19.7 Diarrhea, unspecified | CPT/HCPCS: 82270 ==

== ENCOUNTER → 2020-10-22 | Outpatient (CLI) | payer OTHER ==
[~2020-10-22] MED LIST changes: +DOCU100C10 PO; -DOCU100C8 PO; -LEVO500T21 PO; +LEVO500T31 PO
[2020-10-22 08:07] LABS: Basophils # (auto) 0 10 ^3/uL (0-0.2); Basophils % (auto) 0.4 % (0.0-2.0); Eosinophils # (auto) 0.1 10 ^3/uL (0-0.8); Hematocrit 49.6 % (41.0-53.0); Hemoglobin 16.8 g/dL (13.5-17.5); Lymphocytes # (auto) 2.5 10 ^3/uL (0.4-5.4); Lymphocytes % (auto) 31.9 % (10.0-50.0); Mean Corpuscular Hemoglobin 29.2 pg (28.0-32.0); Mean Corpuscular Hgb Conc. 33.9 g/dL (32.0-36.0); Mean Corpuscular Volume 86.2 fL (80.0-100.0); Monocytes # (auto) 0.5 10 ^3/uL (0-1.3); Monocytes % (auto) 6.3 % (0.0-12.0); Neutrophils # (auto) 4.7 10 ^3/uL (1.6-8.6); Neutrophils % (auto) 60.4 % (37.0-80.0); Nucleated Red Blood Cells % 0.4 %; Platelet Count (auto) 236 10^3/uL (140-450); Red Blood Cells 5.76 10^6/uL (4.5-5.90); Red Cell Distribution Width 13.6 % (11.8-14.3); White Blood Cell 7.7 10^3/uL (4.4-10.8)
== END | disposition home or self-care (01) ==
LOC: LAB 07:12
PROVIDERS: ATTEND Internal Medicine
DX: L40.9 Psoriasis, unspecified (principal)
CPT/HCPCS: 36415; 83036; 85025; 86141

== ENCOUNTER → 2021-04-17 | Outpatient (CLI) | payer OTHER ==
[2021-04-17 08:00] LABS: Cholesterol 126 mg/dL (< 200)
[2021-04-17 08:02] LABS: HDL Cholesterol 40 mg/dL (40-59); Triglycerides 403 mg/dL (< 150)
== END | disposition home or self-care (01) ==
LOC: LAB 06:45
PROVIDERS: ATTEND Internal Medicine
DX: Z12.5 Encounter for screening for malignant neoplasm of prostate (principal); Z12.11 Encounter for screening for malignant neoplasm of colon; I10 Essential (primary) hypertension
CPT/HCPCS: 36415; 80061; 84153

== ENCOUNTER → 2021-04-26 | Outpatient (CLI) | payer OTHER | END | disposition home or self-care (01) | LOC: XYW 12:09 | PROVIDERS: ATTEND Internal Medicine | DX: I08.1 Rheumatic disorders of both mitral and tricuspid valves (principal); R60.0 Localized edema | CPT/HCPCS: 93306 ==

== ENCOUNTER → 2021-07-27 | Outpatient (CLI) | payer OTHER ==
[2021-07-27 09:09] LABS: Albumin 3.9 g/dL (3.4-5.0); BUN/Creatinine Ratio 19.2; Calcium 8.5 mg/dL (8.5-10.1); Potassium 3.9 mmol/L (3.5-5.1)
[2021-07-27 09:13] LABS: Bilirubin, Total 0.8 mg/dL (0.2-1.0); Total Protein 7.8 g/dL (6.4-8.2)
== END | disposition home or self-care (01) ==
LOC: LAB 08:05
PROVIDERS: ATTEND Internal Medicine
DX: I10 Essential (primary) hypertension (principal); E78.5 Hyperlipidemia, unspecified
CPT/HCPCS: 36415; 80053; 80061; 83036

== ENCOUNTER → 2021-08-05 | Outpatient (CLI) | payer OTHER | END | disposition home or self-care (01) | LOC: LAB 10:47 | PROVIDERS: ATTEND Internal Medicine | DX: E78.5 Hyperlipidemia, unspecified (principal); I10 Essential (primary) hypertension | CPT/HCPCS: 82270 ==

== ENCOUNTER 2023-08-28 10:58 | Day surgery (SDC) | payer OTHER ==
[2023-08-25 15:06] LABS: Basophils # (auto) 0 10 ^3/uL (0-0.2); Basophils % (auto) 0.5 % (0.0-2.0); Eosinophils # (auto) 0.1 10 ^3/uL (0-0.8); Eosinophils % (auto) 1.3 % (0.0-7.0); Hematocrit 49.9 % (41.0-53.0); Hemoglobin 16.8 g/dL (13.5-17.5); Lymphocytes # (auto) 3.3 10 ^3/uL (0.4-5.4); Lymphocytes % (auto) 35.1 % (10.0-50.0); Mean Corpuscular Hgb Conc. 33.7 g/dL (32.0-36.0); Mean Corpuscular Volume 86.2 fL (80.0-100.0); Monocytes # (auto) 0.7 10 ^3/uL (0-1.3); Monocytes % (auto) 7.9 % (0.0-12.0); Neutrophils # (auto) 5.1 10 ^3/uL (1.6-8.6); Neutrophils % (auto) 55.2 % (37.0-80.0); Nucleated Red Blood Cells % 0.2 %; Red Blood Cells 5.79 10^6/uL (4.5-5.90); Red Cell Distribution Width 13.2 % (11.8-14.3); White Blood Cell 9.3 10^3/uL (4.4-10.8)
[2023-08-25 15:26] LABS: Alanine Aminotransferase 21 U/L (7-40); Albumin 4.6 g/dL (3.2-4.8); Alkaline Phosphatase 112 U/L (46-116); Anion Gap 4 (5-15); Aspartate Aminotransferase 21 U/L (13-40); BUN/Creatinine Ratio 11.1 (10.0-20.0); Bilirubin, Total 0.6 mg/dL (0.2-1.0); Blood Urea Nitrogen 8 mg/dL (9-23); Calcium 9.3 mg/dL (8.5-10.1); Carbon Dioxide 28 mmol/L (20-30); Chloride 104 mmol/L (98-107); Glucose 95 mg/dL (74-106); Sodium 136 mmol/L (136-145); Total Protein 7.4 g/dL (5.7-8.2)
[2023-08-25 15:35] LABS: Partial Thromboplastin Time 30.4 SEC (24.5-34.5); Prothrombin Time 10.5 sec (9.3-11.8)
[~2023-08-28] VITALS: Ht 177.8 cm; Wt 102.1 kg
[~2023-08-28 10:58] MED LIST changes: +AMLO1TAB23 PO; -DOCU100C10 PO; -LEVO500T31 PO; -METR500T PO
[2023-08-28] MEDS ORDERED: fentaNYL CITRATE 100 MCG/2 ML VL ONE (11:15)
[2023-08-28] MEDS ORDERED: diphenhdrAMINE HCL 50 MG/1 ML VL ONE (11:15)
[2023-08-28] MEDS ORDERED: MIDAZOLAM HCL 5 MG/ML-1ML VIAL ONE (11:15)
[2023-08-28] MEDS ORDERED: SODIUM CHLORIDE LOCK 10 ML ONE (11:15)
[2023-08-28 14:03] VITALS: O2SAT 94
[2023-08-28 14:24] VITALS: TEMP 98.5; O2SAT 94
[2023-08-28 14:54] VITALS: BP 140/84; PULSE 86; RESP 18; O2SAT 95
== END 2023-08-28 15:09 | disposition home or self-care (01) ==
LOC: GI 10:58
PROVIDERS: ATTEND Internal Medicine Gastroenterology
DX: Z12.11 Encounter for screening for malignant neoplasm of colon (principal); K57.30 Diverticulosis of large intestine without perforation or abscess without bleeding; K64.8 Other hemorrhoids; K63.89 Other specified diseases of intestine; I10 Essential (primary) hypertension; Z98.890 Other specified postprocedural states; Z79.899 Other long term (current) drug therapy; Z90.49 Acquired absence of other specified parts of digestive tract
CPT/HCPCS: 36415; 45378; 80053; 85025; 85610; 85730; J1200; J2250; J3010; J7030

== ENCOUNTER → 2023-09-11 | Outpatient (CLI) | payer OTHER ==
[2023-09-11 06:51] LABS: Triglycerides 192 mg/dL (< 150)
[2023-09-11 06:52] LABS: LDL Cholesterol 59 mg/dL (< 100)
[2023-09-11 06:53] LABS: Cholesterol 118 mg/dL (< 200); HDL Cholesterol 36 mg/dL (40-59)
== END | disposition home or self-care (01) ==
LOC: LAB 06:04
PROVIDERS: ATTEND Internal Medicine
DX: E78.5 Hyperlipidemia, unspecified (principal)
CPT/HCPCS: 36415; 80061

== ENCOUNTER → 2023-11-20 | Outpatient (CLI) | payer OTHER ==
[2023-11-20 08:28] LABS: Chloride 103 mmol/L (98-107); Potassium 4.3 mmol/L (3.5-5.1); Sodium 139 mmol/L (136-145)
[2023-11-20 08:29] LABS: Anion Gap 6 (5-15); Carbon Dioxide 30 mmol/L (20-30)
[2023-11-20 08:30] LABS: Calcium 9.2 mg/dL (8.5-10.1)
[2023-11-20 08:34] LABS: Glucose 103 mg/dL (74-106); Triglycerides 396 mg/dL (< 150)
[2023-11-20 08:35] LABS: BUN/Creatinine Ratio 13.1 (10.0-20.0); Blood Urea Nitrogen 11 mg/dL (9-23); LDL Cholesterol 50 mg/dL (< 100)
[2023-11-20 08:36] LABS: Cholesterol 134 mg/dL (< 200); HDL Cholesterol 33 mg/dL (40-59)
== END | disposition home or self-care (01) ==
LOC: LAB 07:38
PROVIDERS: ATTEND Internal Medicine
DX: I10 Essential (primary) hypertension (principal); R60.9 Edema, unspecified
CPT/HCPCS: 36415; 80048; 80061; 83880

== ENCOUNTER → 2024-06-17 | Outpatient (CLI) | payer OTHER ==
[2024-06-17 08:11] LABS: LDL Cholesterol 66 mg/dL (< 100); Triglycerides 145 mg/dL (< 150)
[2024-06-17 08:12] LABS: Cholesterol 131 mg/dL (< 200)
[2024-06-17 08:13] LABS: HDL Cholesterol 47 mg/dL (40-59)
== END | disposition home or self-care (01) ==
LOC: LAB 06:40
PROVIDERS: ATTEND Internal Medicine
DX: Z12.11 Encounter for screening for malignant neoplasm of colon (principal); Z00.00 Encounter for general adult medical examination without abnormal findings; I10 Essential (primary) hypertension
CPT/HCPCS: 36415; 80061; 82270; 84153

== ENCOUNTER → 2024-10-21 | Outpatient (CLI) | payer OTHER ==
[2024-10-21 08:33] LABS: Alanine Aminotransferase 33 U/L (7-40); Albumin 4.5 g/dL (3.2-4.8); Alkaline Phosphatase 70 U/L (46-116); Anion Gap 6 (5-15); Aspartate Aminotransferase 18 U/L (13-40); BUN/Creatinine Ratio 20.9 (10.0-20.0); Bilirubin, Total 0.5 mg/dL (0.2-1.0); Blood Urea Nitrogen 18 mg/dL (9-23); Calcium 9.3 mg/dL (8.7-10.4); Carbon Dioxide 28 mmol/L (20-31); Chloride 106 mmol/L (98-107); Glucose 105 mg/dL (74-106); Sodium 140 mmol/L (136-145); Total Protein 7.2 g/dL (5.7-8.2)
== END | disposition home or self-care (01) ==
LOC: LAB 07:21
PROVIDERS: ATTEND Internal Medicine
DX: I10 Essential (primary) hypertension (principal); E78.5 Hyperlipidemia, unspecified; L40.1 Generalized pustular psoriasis
CPT/HCPCS: 36415; 80053; 82306; 82607; 84443

== ENCOUNTER → 2025-05-05 | Outpatient (CLI) | payer OTHER ==
[2025-05-05 07:07] LABS: Urine Protein, UAD Negative (Negative)
[2025-05-05 07:38] LABS: Cholesterol 125 mg/dL (< 200); HDL Cholesterol 45 mg/dL (40-59)
[2025-05-05 07:45] LABS: Triglycerides 197 mg/dL (< 150)
== END | disposition home or self-care (01) ==
LOC: LAB 06:28
PROVIDERS: ATTEND Internal Medicine
DX: E78.5 Hyperlipidemia, unspecified (principal); E55.9 Vitamin D deficiency, unspecified
CPT/HCPCS: 36415; 80061; 81001; 82306; 82607